=== PATIENT | female | born 1960 | race African-American/Black ===

== ENCOUNTER 2016-12-24 20:58 | Emergency (ER) | payer OTHER ==
[~2016-12-24] VITALS: Ht 170.2 cm; Wt 70.0 kg
[~2016-12-24 20:58] MED LIST: ATOR10TA84 PO; CHLO750T PO; CYCL-375 PO; EXEM25TA PO; FLUO-191 PO; LISI10TA7 PO; MORP30TA11 PO; OXYC30TA2 PO; ZOLP5 PO
[2016-12-24] MEDS ORDERED: ARIP5TAB9 PO (21:11)
[2016-12-24] MEDS ORDERED: MORPHINE SULFATE 4 MG/ML SYRINGE IM ONE (22:00)
[2016-12-24 23:10] VITALS: BP 140/80
== END 2016-12-24 23:38 | disposition home or self-care (01) ==
LOC: EMS 21:01
DX: G89.29 Other chronic pain (principal); M54.9 Dorsalgia, unspecified; F17.210 Nicotine dependence, cigarettes, uncomplicated; Z85.3 Personal history of malignant neoplasm of breast
CPT/HCPCS: 96372; 99283; J2270

== ENCOUNTER 2017-07-16 17:49 | Emergency (ER) | payer OTHER ==
[~2017-07-16] VITALS: Ht 152.4 cm; Wt 72.7 kg
[~2017-07-16 17:49] MED LIST changes: +ARIP5TAB8 PO; -ATOR10TA84 PO; -CYCL-375 PO; -FLUO-191 PO; -ZOLP5 PO
[2017-07-16] MEDS ORDERED: ACETAMINOPHEN/CODEINE 300-30 MG TABLET PO ONE (18:30)
[2017-07-16] MEDS ORDERED: PROPARACAINE HCL 0.5% 15 ML OPHTHALMIC SOLUTION OD ONE (18:45)
[2017-07-16] MEDS ORDERED: FLUORESCEIN SODIUM 1 MG STRIP ONE (18:54)
[2017-07-16 20:25] VITALS: BP 131/88
== END 2017-07-16 20:35 | disposition home or self-care (01) ==
LOC: EMS 17:50
DX: S05.11XA Contusion of eyeball and orbital tissues, right eye, initial encounter (principal); F17.210 Nicotine dependence, cigarettes, uncomplicated; G89.29 Other chronic pain; W22.8XXA Striking against or struck by other objects, initial encounter; Y93.89 Activity, other specified; Y92.89 Other specified places as the place of occurrence of the external cause; Y99.8 Other external cause status
CPT/HCPCS: 99283

== ENCOUNTER 2017-08-23 06:37 | Emergency (ER) | payer OTHER ==
[~2017-08-23] VITALS: Ht 170.2 cm; Wt 72.7 kg
[2017-08-23] MEDS ORDERED: SODIUM CHLORIDE 0.9% 500 ML IV ONE (07:30)
[2017-08-23] MEDS ORDERED: KETOROLAC TROMETHAMINE 30 MG/ML VIAL IVP ONE (07:30)
[2017-08-23] MEDS ORDERED: ONDANSETRON HCL 4 MG/2 ML VIAL IVP ONE (07:30)
[2017-08-23 08:54] LABS: BASOPHILS # (AUTO) 0.02 K/uL (0.00-0.20); BASOPHILS % (AUTO) 0.4 % (0.0-2.0); EOSINOPHILS # (AUTO) 0.13 K/uL (0.00-0.70); EOSINOPHILS % (AUTO) 2.76 % (1.0-6.0); HEMATOCRIT 38.2 % (36-46); HEMOGLOBIN 11.8 g/dL (12.0-16.0); LYMPHOCYTES % (AUTO) 21.5 % (22.0-44.0); MEAN CORPUSCULAR HEMOGLOBIN 22.8 pg (26.0-34.0); MEAN CORPUSCULAR HGB CONC 30.8 G/dL (31.0-37.0); MEAN CORPUSCULAR VOLUME 74 fL (80-100); MONOCYTES # (AUTO) 0.4 K/uL (0.1-1.0); MONOCYTES % (AUTO) 7.6 % (2.0-9.0); NEUTROPHILS # (AUTO) 3.1 K/uL (1.8-7.7); NEUTROPHILS % (AUTO) 67.8 % (40.0-70.0); RED BLOOD CELL COUNT(AUTO) 5.16 MIL/uL (4.00-5.20); RED CELL DISTRIBUTION WIDTH 15.8 % (11.5-14.5); WHITE BLOOD COUNT (AUTO) 4.6 K/uL (4.5-11.0)
[2017-08-23 09:03] LABS: INFLUENZA TYPE B NEGATIVE FOR TYPE B (NEGATIVE)
[2017-08-23 09:07] LABS: ANION GAP 6 mmol/L (8-16); CALCIUM, TOTAL 8.6 mg/dL (8.8-10.5); CARBON DIOXIDE 27 mmol/L (22-29); CHLORIDE 106 mmol/L (98-107); CREATININE 0.96 mg/dL (0.60-1.30); GLOMERULAR FILTR. RATE CALC > 60 mL/min (>60); POTASSIUM 3.9 mmol/L (3.5-5.1); SODIUM SERUM 139 mmol/L (136-145); UREA NITROGEN, BLOOD 12 mg/dL (7-18)
[2017-08-23 09:19] LABS: ALANINE AMINOTRANSFERASE 25 U/L (12-78); ALBUMIN 3.3 g/dL (3.4-5.0); ASPARTATE AMINOTRANSFERASE 22 U/L (15-37); BILIRUBIN,TOTAL 0.4 mg/dL (0.1-1.0); TOTAL PROTEIN, SERUM 6.7 g/dL (6.4-8.2)
[2017-08-23 10:09] LABS: PLATELET COUNT (AUTO) 123 K/uL (150-450)
[2017-08-23] MEDS ORDERED: IOVERSOL 350 MG/ML 100 ML VIAL ONE (10:09)
[2017-08-23 10:10] LABS: RBC MORPHOLOGY COMMENT ABNORMAL RBC MORPH
[2017-08-23] MEDS ORDERED: SODIUM CHLORIDE 0.9% 1,000 ML IV ONE (12:30)
[2017-08-23] MEDS ORDERED: HYDROmorphone 2 MG/ML SYRINGE IVP ONE (12:45)
[2017-08-23 12:51] VITALS: BP 136/80
== END 2017-08-23 13:46 | disposition left against medical advice (07) ==
LOC: EMS 06:38
DX: R07.89 Other chest pain (principal); R06.02 Shortness of breath; C34.90 Malignant neoplasm of unspecified part of unspecified bronchus or lung; R05 Cough; R09.81 Nasal congestion; G89.29 Other chronic pain; F17.210 Nicotine dependence, cigarettes, uncomplicated; Z90.710 Acquired absence of both cervix and uterus; Z85.3 Personal history of malignant neoplasm of breast
CPT/HCPCS: 36415; 71010; 80053; 83690; 85025; 87040; 87804; 96361; 96374; 96375; 99285; J1170; J1885; J2405; J7030; J7040; Q9967